=== PATIENT | female | born 1960 | race Caucasian/White ===

== ENCOUNTER 2023-11-13 06:18 | Day surgery (SDC) | payer OTHER ==
[~2023-11-13] VITALS: Ht 157.5 cm; Wt 75.0 kg
[2023-11-13] MEDS ORDERED: SODIUM CHLORIDE 0.9% 1,000 ML ONE (06:56)
[2023-11-13] MEDS ORDERED: MIDAZOLAM HCL 2 MG/2 ML VIAL ONE (07:58)
[2023-11-13] MEDS ORDERED: FentaNYL CITRATE PF 100 MCG/2 ML VIAL ONE (07:59)
[2023-11-13 08:00] LABS: GLUCOMETER DEV NAME(LOC) SDS.; GLUCOSE,POINT OF CARE 102 MG/DL (70-110)
[2023-11-13] MEDS: SODIUM CHLORIDE 0.9% 1,000 ML IV ONE (08:41)
[2023-11-13 09:20] VITALS: PULSE 60; RESP 14; O2SAT 100
[2023-11-13] MEDS ORDERED: MethylPREDNISolone SOD SUCC 125 MG/2 ML VIAL ONE (09:52)
[2023-11-13] MEDS: MethylPREDNISolone SOD SUCC 125 MG/2 ML VIAL IVP ONE (09:53)
[2023-11-13] MEDS ORDERED: FERR325T27 PO (10:03)
[2023-11-13] MEDS ORDERED: DAPA10TA PO (10:03)
[2023-11-13] MEDS ORDERED: AMLO-340 PO (10:03)
[2023-11-13] MEDS ORDERED: ATOR40TA28 PO (10:03)
[2023-11-13] MEDS ORDERED: ISOS30TA92 PO (10:03)
[2023-11-13] MEDS ORDERED: LEVO125T95 PO (10:03)
[2023-11-13] MEDS ORDERED: METO25 PO (10:04)
[2023-11-13] MEDS ORDERED: QUET100T PO (10:04)
[2023-11-13] MEDS ORDERED: MONT-35 PO (10:04)
[2023-11-13] MEDS ORDERED: OMEP20 PO (10:04)
[2023-11-13] MEDS ORDERED: ASPI-1450 PO (10:04)
[2023-11-13] MEDS ORDERED: BACL10TA PO (10:04)
[2023-11-13] MEDS ORDERED: ESCI-8 PO (10:04)
[2023-11-13] MEDS ORDERED: RANO500T27 PO (10:04)
[2023-11-13] MEDS ORDERED: ALBUTEROL SULFATE 2.5 MG/0.5 ML NEB SOLUTION NEB ONE (12:00)
[2023-11-13] MEDS ORDERED: LIDOCAINE 4% 50 ML SOLUTION ONE (12:00)
[2023-11-13] MEDS ORDERED: BENZOCAINE 20% 50 MCG/SPRAY 57 GM ONE (12:00)
[2023-11-13] MEDS ORDERED: LIDOCAINE 2% 11 ML JELLY ONE (12:00)
== END 2023-11-13 11:35 | disposition home or self-care (01) ==
LOC: SURGERY 06:18
PROVIDERS: ATTEND Internal Medicine Critical Care Medicine
DX: R05.3 Chronic cough (principal); R94.31 Abnormal electrocardiogram [ECG] [EKG]; R91.8 Other nonspecific abnormal finding of lung field; I27.20 Pulmonary hypertension, unspecified; R06.2 Wheezing; R04.2 Hemoptysis; J98.09 Other diseases of bronchus, not elsewhere classified; J84.10 Pulmonary fibrosis, unspecified; J98.8 Other specified respiratory disorders; K44.9 Diaphragmatic hernia without obstruction or gangrene; J43.9 Emphysema, unspecified; I10 Essential (primary) hypertension; E03.9 Hypothyroidism, unspecified; Z85.21 Personal history of malignant neoplasm of larynx; Z95.0 Presence of cardiac pacemaker; Z79.82 Long term (current) use of aspirin; Z79.899 Other long term (current) drug therapy; Z98.890 Other specified postprocedural states; Z88.0 Allergy status to penicillin
CPT/HCPCS: 31623; 93005; 82962; 87206; 87101; 87220; 87070; 88108; 31624; 94640; 71045; 71250; 87015; J3010; J2250; J2919; J7030; J7613; Z7610